=== PATIENT | female | born 1960 | race African-American/Black ===

== ENCOUNTER 2016-12-06 10:44 | Emergency (ER) | payer OTHER ==
--- NOTE | 2016-12-06 13:03 | EDDOCDS ---
Physician Documentation [facility] Name: Cece Pedroza Age: 56 yrs Sex: Female : 1960 Arrival Date: 12/06/2016 Time: 10:44 Bed Family 3 Private MD: Disposition: 12/06/16 12:31 Discharged to Home/Self Care. Impression: Toxic effect of carbon dioxide - Exposure to Carbon Monoxide. - Condition is Stable. - Discharge Instructions: Carbon Monoxide Poisoning, [id number]. - Referral List Call for Appointment, Medication Reconciliation, Local Pharmacy Hours form. - [facility] ; When: 1 - 2 days; Reason: Recheck today's complaints, Continuance of care. Follow up: Emergency Department; Reason: Worsening of conditions. - Problem is new. - Symptoms have improved. Historical: - Allergies: no known allergies; - Home Meds: 1. Albuterol Inhl 2. montelukast oral oral once daily 3. Omeprazole Unknown Oral once daily 4. ProAir HFA inhalation inhalation as needed - PMHx: Asthma; - PSHx: none; - Social history: Smoking status: Patient states was never smoker of tobacco. No barriers to communication noted, The patient speaks fluent Togolese, Speaks appropriately for age. - Family history: Not pertinent. - : The pt / caregiver states he / she is not on anticoagulants. Home medication list is obtained from the patient. - Exposure Risk Screening:: None identified. Vital Signs: 12/06 10:46 BP 133 / 98; Pulse 96; Resp 18; Temp 97.3(O); Pulse Ox 99% on R/A; Weight 68.04 kg / ct3 150 lbs (R); Height 5 ft. 27 in. (220.98 cm) (R); 12:44 BP 125 / 68; Pulse 72; Resp 16; Temp 96.1(TE); Pulse Ox 97% on R/A; Pain 0/10; kr3 10:46 Body Mass Index 13.93 (68.04 kg, 220.98 cm) ct3 MDM: 10:53 Oxygen at 2L/min via NC ordered. ef1 10:54 Carboxyhemoglobin Ordered. EDMS 11:50 Carboxyhemoglobin Reviewed. ef1 12:21 Financial registration complete. mm15 Signatures: Dispatcher [employer] EDMS Suyapa, Jane, RN RN Camryn Goldstein, AVNI PAMonicaC ef1 Emil Barillas mm15 Raeann Jane,RN RN ilanad MTDD
--- NOTE | 2016-12-06 13:03 | EDDOCDS ---
Nurse's Notes [facility] Name: Cece Pedroza Age: 56 yrs Sex: Female : 1960 Arrival Date: 12/06/2016 Time: 10:44 Bed Family 3 Private MD: Diagnosis: Toxic effect of carbon dioxide-Exposure to Carbon Monoxide Presentation: 12/06 10:55 Presenting complaint: Patient states: pt reports the carbon monoxide alarm went off at [facility] home. Reports battery was changed yesterday and alarm continued to go off yesterday. Police went to home today and advised pt and family to come to ER for evaluation. Presenting complaint: Patient states: pt reports headache and tiredness this morning, but states has improved since. 10:57 Adult Sepsis Screening: The patient does not have new or worsening altered mentation. ead Patient's respiratory rate is less than 22. Systolic blood pressure is greater than 100. Patient has a qSOFA score of 0- Negative Sepsis Screen. Suicide/Homicide risk assessment- the patient denies having any suicidal and/or homicidal ideations and does not present with any other emotional, behavioral or mental health complaints. Status: Patient is not a clinical services director or dependent. Transition of care: patient was not received from another setting of care. 10:57 Acuity: KESHAV Level 4 ead 10:57 Method Of Arrival: Walkin/Carried/Asstd ead Triage Assessment: 10:59 General: Appears in no apparent distress, comfortable, Behavior is appropriate for age, ead cooperative. Pain: Denies pain. Neurological: Level of Consciousness is awake, alert, Oriented to person, place, time. Respiratory: Airway is patent Respiratory effort is even, unlabored, Denies cough, shortness of breath. 10:59 Pt Declines HIV testing. ead Historical: - Allergies: no known allergies; - Home Meds: 1. Albuterol Inhl 2. montelukast oral oral once daily 3. Omeprazole Unknown Oral once daily 4. ProAir HFA inhalation inhalation as needed - PMHx: Asthma; - PSHx: none; - Social history: Smoking status: Patient states was never smoker of tobacco. No barriers to communication noted, The patient speaks fluent Bulgarian, Speaks appropriately for age. - Family history: Not pertinent. - : The pt / caregiver states he / she is not on anticoagulants. Home medication list is obtained from the patient. - Exposure Risk Screening:: None identified. Screenin:02 Screening information is obtained from the patient. Fall risk: No risks identified. mcp Assistance ADL's: requires no assistance with activities of daily living. Abuse/DV Screen: The patient / caregiver reports he/she is: not in a situation that causes fear, pain or injury. Nutritional screening: No deficits noted. Advance Directives: There is no active DNR order. home support is adequate. Assessment: 13:02 General: Appears in no apparent distress, comfortable, Behavior is cooperative. mcp Neurological: Level of Consciousness is awake, alert, Oriented to person, place, time, Moves all extremities. Speech is normal. Respiratory: Airway is patent Respiratory effort is even, unlabored. Derm: Skin is pink, warm & dry. Vital Signs: 10:46 BP 133 / 98; Pulse 96; Resp 18; Temp 97.3(O); Pulse Ox 99% on R/A; Weight 68.04 kg (R); ct3 Height 5 ft. 27 in. (220.98 cm) (R); 12:44 BP 125 / 68; Pulse 72; Resp 16; Temp 96.1(TE); Pulse Ox 97% on R/A; Pain 0/10; kr3 10:46 Body Mass Index 13.93 (68.04 kg, 220.98 cm) ct3 Vitals: 10:46 Log In Time: December 06, 2016 at 10:43. ct3 ED Course: 10:46 Patient visited by Cyndi Palmer PCA. ct3 10:46 Patient moved to Waiting ct3 10:48 Patient moved to Pre RCE ct3 10:53 Camryn Lee PA-C is PHCP. ef1 10:53 Angela Lopez MD is Attending Physician. ef1 10:55 Patient visited by Camryn Lee PA-C. ef1 10:55 Patient moved to Family 3 ead 10:57 Triage Initiated ead 11:37 Patient visited by Camryn Lee PA-C. ef1 11:37 Carboxyhemoglobin Sent. jam1 12:20 Patient visited by Camryn Lee PA-C. ef1 12:31 [facility] is Referral Physician. ef1 13:02 The patient / caregiver is instructed regarding the plan of care and ED course. Patient mcp has correct armband on for positive identification. Bed in low position. Call light in reach. Adult w/ patient. 13:02 No IV's were initiated during this patient's visit. No procedures done that require mcp assistance. Order Results: Lab Order: Carboxyhemoglobin; SPEC'M 12/06/16 11:28 Test: CARBOXYHEMOGLOBIN; Value: 5.3; Range: 0.0-1.5; Abnormal: Above high normal; Units: %; Status: F Test Note: ; CARBOXYHEMOGLOBIN EXPECTED VALUES SUB[place]AN NON-SMOKERS LESS THAN 1.5% SMOKERS 1.5-5.0% HEAVY SMOKERS 5.0-9.0% Outcome: 12:31 Discharge ordered by Provider. ef1 13:03 Discharge Assessment: patient administered narcotics - no. The following High Risk mcp Discharge criteria are identified: None. Discharged to home ambulatory, with family. Condition: stable. Discharge instructions given to patient, Instructed on discharge instructions, follow up and referral plans. Demonstrated understanding of instructions, Pt was receptive of discharge instructions/ teaching. No special radiology studies were completed. Property sent home with patient. 13:03 Patient left the ED. mcp Signatures: Jane Dale RN RN Amarilys Logan, OYSTER TONGER OYSTER TONGER jam1 Gabby Dale,RN RN kr3 Camryn Lee, PA-Benito PA-C ef1 Cyndi Palmer, OYSTER TONGER OYSTER TONGER ct3 Raeann Jane,LANIE garcia MTDD
--- NOTE | 2016-12-08 14:03 | EDDOCDS ---
Nurse's Notes [facility] Name: Cece Pedroza Age: 56 yrs Sex: Female : 1960 Arrival Date: 12/06/2016 Time: 10:44 Bed Family 3 Private MD: Diagnosis: Toxic effect of carbon dioxide-Exposure to Carbon Monoxide Presentation: 12/06 10:55 Presenting complaint: Patient states: pt reports the carbon monoxide alarm went off at [facility] home. Reports battery was changed yesterday and alarm continued to go off yesterday. Police went to home today and advised pt and family to come to ER for evaluation. Presenting complaint: Patient states: pt reports headache and tiredness this morning, but states has improved since. 10:57 Adult Sepsis Screening: The patient does not have new or worsening altered mentation. ead Patient's respiratory rate is less than 22. Systolic blood pressure is greater than 100. Patient has a qSOFA score of 0- Negative Sepsis Screen. Suicide/Homicide risk assessment- the patient denies having any suicidal and/or homicidal ideations and does not present with any other emotional, behavioral or mental health complaints. Status: Patient is not a legal services manager or dependent. Transition of care: patient was not received from another setting of care. 10:57 Acuity: KESHAV Level 4 ead 10:57 Method Of Arrival: Walkin/Carried/Asstd ead Triage Assessment: 10:59 General: Appears in no apparent distress, comfortable, Behavior is appropriate for age, ead cooperative. Pain: Denies pain. Neurological: Level of Consciousness is awake, alert, Oriented to person, place, time. Respiratory: Airway is patent Respiratory effort is even, unlabored, Denies cough, shortness of breath. 10:59 Pt Declines HIV testing. ead Historical: - Allergies: no known allergies; - Home Meds: 1. Albuterol Inhl 2. montelukast oral oral once daily 3. Omeprazole Unknown Oral once daily 4. ProAir HFA inhalation inhalation as needed - PMHx: Asthma; - PSHx: none; - Social history: Smoking status: Patient states was never smoker of tobacco. No barriers to communication noted, The patient speaks fluent Albanian, Speaks appropriately for age. - Family history: Not pertinent. - : The pt / caregiver states he / she is not on anticoagulants. Home medication list is obtained from the patient. - Exposure Risk Screening:: None identified. Screenin:02 Screening information is obtained from the patient. Fall risk: No risks identified. mcp Assistance ADL's: requires no assistance with activities of daily living. Abuse/DV Screen: The patient / caregiver reports he/she is: not in a situation that causes fear, pain or injury. Nutritional screening: No deficits noted. Advance Directives: There is no active DNR order. home support is adequate. Assessment: 13:02 General: Appears in no apparent distress, comfortable, Behavior is cooperative. mcp Neurological: Level of Consciousness is awake, alert, Oriented to person, place, time, Moves all extremities. Speech is normal. Respiratory: Airway is patent Respiratory effort is even, unlabored. Derm: Skin is pink, warm & dry. Vital Signs: 10:46 BP 133 / 98; Pulse 96; Resp 18; Temp 97.3(O); Pulse Ox 99% on R/A; Weight 68.04 kg (R); ct3 Height 5 ft. 27 in. (220.98 cm) (R); 12:44 BP 125 / 68; Pulse 72; Resp 16; Temp 96.1(TE); Pulse Ox 97% on R/A; Pain 0/10; kr3 10:46 Body Mass Index 13.93 (68.04 kg, 220.98 cm) ct3 Vitals: 10:46 Log In Time: December 06, 2016 at 10:43. ct3 ED Course: 10:46 Patient visited by Cyndi Palmer PCA. ct3 10:46 Patient moved to Waiting ct3 10:48 Patient moved to Pre RCE ct3 10:53 Camryn Lee PA-C is PHCP. ef1 10:53 Angela Lopez MD is Attending Physician. ef1 10:55 Patient visited by Camryn Lee PA-C. ef1 10:55 Patient moved to Family 3 ead 10:57 Triage Initiated ead 11:37 Patient visited by Camryn Lee PA-C. ef1 11:37 Carboxyhemoglobin Sent. jam1 12:20 Patient visited by Camryn Lee PA-C. ef1 12:31 [facility] is Referral Physician. ef1 13:02 The patient / caregiver is instructed regarding the plan of care and ED course. Patient mcp has correct armband on for positive identification. Bed in low position. Call light in reach. Adult w/ patient. 13:02 No IV's were initiated during this patient's visit. No procedures done that require mcp assistance. 14:22 [facility] Payment Agreement was scanned into [employer] and attached to record. mm15 14:24 T-Sheet-- Draft Copy was scanned into [employer] and attached to record. gb 14:39 Patient name changed from Cece\S\\S\Emeagwali\S\ to Cece\S\ \S\Emeagwali. EDMS Order Results: Lab Order: Carboxyhemoglobin; SPEC'M 12/06/16 11:28 Test: CARBOXYHEMOGLOBIN; Value: 5.3; Range: 0.0-1.5; Abnormal: Above high normal; Units: %; Status: F Test Note: ; CARBOXYHEMOGLOBIN EXPECTED VALUES [place] NON-SMOKERS LESS THAN 1.5% SMOKERS 1.5-5.0% HEAVY SMOKERS 5.0-9.0% Outcome: 12:31 Discharge ordered by Provider. ef1 13:03 Discharge Assessment: patient administered narcotics - no. The following High Risk mcp Discharge criteria are identified: None. Discharged to home ambulatory, with family. Condition: stable. Discharge instructions given to patient, Instructed on discharge instructions, follow up and referral plans. Demonstrated understanding of instructions, Pt was receptive of discharge instructions/ teaching. No special radiology studies were completed. Property sent home with patient. 13:03 Patient left the ED. mcp Signatures: Dispatcher [employer] EDMS Jane Dale, RN RN Amarilys Logan, PET GROOMER PET GROOMER jam1 Leigh Melgar, Reg Reg gb Gabby DaleRN RN [email or web address] Camryn Lee, PA-Benito PA-C ef1 Cyndi Palmer, PET GROOMER PET GROOMER ct3 Emil Barillas mm15 Raeann Jane,LANIE garcia Chart Complete MTDD
--- NOTE | 2016-12-08 14:03 | EDDOCDS ---
Physician Documentation [facility] Name: Cece Pedroza Age: 56 yrs Sex: Female : 1960 Arrival Date: 12/06/2016 Time: 10:44 Bed Family 3 Private MD: Disposition: 12/06/16 12:31 Discharged to Home/Self Care. Impression: Toxic effect of carbon dioxide - Exposure to Carbon Monoxide. - Condition is Stable. - Discharge Instructions: Carbon Monoxide Poisoning, [id number]. - Referral List Call for Appointment, Medication Reconciliation, Local Pharmacy Hours form. - [facility] up: [facility] ; When: 1 - 2 days; Reason: Recheck today's complaints, Continuance of care. Follow up: Emergency Department; Reason: Worsening of conditions. - Problem is new. - Symptoms have improved. Historical: - Allergies: no known allergies; - Home Meds: 1. Albuterol Inhl 2. montelukast oral oral once daily 3. Omeprazole Unknown Oral once daily 4. ProAir HFA inhalation inhalation as needed - PMHx: Asthma; - PSHx: none; - Social history: Smoking status: Patient states was never smoker of tobacco. No barriers to communication noted, The patient speaks fluent [place], Speaks appropriately for age. - Family history: Not pertinent. - : The pt / caregiver states he / she is not on anticoagulants. Home medication list is obtained from the patient. - Exposure Risk Screening:: None identified. Vital Signs: 12/06 10:46 BP 133 / 98; Pulse 96; Resp 18; Temp 97.3(O); Pulse Ox 99% on R/A; Weight 68.04 kg / ct3 150 lbs (R); Height 5 ft. 27 in. (220.98 cm) (R); 12:44 BP 125 / 68; Pulse 72; Resp 16; Temp 96.1(TE); Pulse Ox 97% on R/A; Pain 0/10; kr3 10:46 Body Mass Index 13.93 (68.04 kg, 220.98 cm) ct3 MDM: 10:53 Oxygen at 2L/min via NC ordered. ef1 10:54 Carboxyhemoglobin Ordered. EDMS 11:50 Carboxyhemoglobin Reviewed. ef1 12:21 Financial registration complete. mm15 14:22 [facility] Payment Agreement was scanned into [employer] and attached to record. mm15 14:24 T-Sheet-- Draft Copy was scanned into [employer] and attached to record. gb Signatures: Dispatcher [employer] Jane Bucio RN RN mcp Leigh Melgar, Reg Reg gb Camryn Lee, PAJacob PAJacob ef1 Emil Barillas mm15 Raeann Jane RN RN ead The chart was reviewed and I authenticate all verbal orders and agree with the evaluation and treatment provided.Attachments: 14:22 [facility] Payment Agreement mm15 14:24 T-Sheet-- Draft Copy gb Chart Complete MTDD
--- NOTE | 2016-12-08 14:03 | EDDOCDS ---
Physician Documentation [facility] Name: Cece Pedroza Age: 56 yrs Sex: Female : 1960 Arrival Date: 12/06/2016 Time: 10:44 Bed Family 3 Private MD: Disposition: 12/06/16 12:31 Discharged to Home/Self Care. Impression: Toxic effect of carbon dioxide - Exposure to Carbon Monoxide. - Condition is Stable. - Discharge Instructions: Carbon Monoxide Poisoning, [id number]. - Referral List Call for Appointment, Medication Reconciliation, Local Pharmacy Hours form. - Follow up: [facility] ; When: 1 - 2 days; Reason: Recheck today's complaints, Continuance of care. Follow up: Emergency Department; Reason: Worsening of conditions. - Problem is new. - Symptoms have improved. Historical: - Allergies: no known allergies; - Home Meds: 1. Albuterol Inhl 2. montelukast oral oral once daily 3. Omeprazole Unknown Oral once daily 4. ProAir HFA inhalation inhalation as needed - PMHx: Asthma; - PSHx: none; - Social history: Smoking status: Patient states was never smoker of tobacco. No barriers to communication noted, The patient speaks fluent French, Speaks appropriately for age. - Family history: Not pertinent. - : The pt / caregiver states he / she is not on anticoagulants. Home medication list is obtained from the patient. - Exposure Risk Screening:: None identified. Vital Signs: 12/06 10:46 BP 133 / 98; Pulse 96; Resp 18; Temp 97.3(O); Pulse Ox 99% on R/A; Weight 68.04 kg / ct3 150 lbs (R); Height 5 ft. 27 in. (220.98 cm) (R); 12:44 BP 125 / 68; Pulse 72; Resp 16; Temp 96.1(TE); Pulse Ox 97% on R/A; Pain 0/10; kr3 10:46 Body Mass Index 13.93 (68.04 kg, 220.98 cm) ct3 MDM: 10:53 Oxygen at 2L/min via NC ordered. ef1 10:54 Carboxyhemoglobin Ordered. EDMS 11:50 Carboxyhemoglobin Reviewed. ef1 12:21 Financial registration complete. mm15 14:22 [facility] Payment Agreement was scanned into [employer] and attached to record. mm15 14:24 T-Sheet-- Draft Copy was scanned into [employer] and attached to record. gb Signatures: Dispatcher [employer] Jane Bucio RN RN mcp Leigh Melgar, Reg Reg gb Camryn Lee, PAJacob PAJacob ef1 Emil Barillas mm15 Raeann Jane RN RN ead The chart was reviewed and I authenticate all verbal orders and agree with the evaluation and treatment provided.Attachments: 14:22 [facility] Payment Agreement mm15 14:24 T-Sheet-- Draft Copy gb Chart Complete MTDD
== END 2016-12-06 13:03 | disposition home or self-care (01) ==
LOC: M ED 10:44
DX: Z77.29 Contact with and (suspected) exposure to other hazardous substances (principal); J45.909 Unspecified asthma, uncomplicated; Z79.51 Long term (current) use of inhaled steroids; Z79.899 Other long term (current) drug therapy